=== PATIENT | male | born 2000 | race Caucasian/White ===

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

== ENCOUNTER 2018-03-02 19:14 | Emergency (ER) | payer OTHER ==
[~2018-03-02] VITALS: Ht 434.3 cm; Wt 63.5 kg
[~2018-03-02 19:14] MED LIST changes: +ANAPROX DS550 MG PO; +CEFADROXIL500 M1 PO
[2018-03-04 11:02] LABS: HEPATITIS B SURFACE AG Negative (Negative); HEPATITIS C VIRUS ANTIBODY <0.1 s/co (0.0-0.9)
== END 2018-03-02 21:42 | disposition home or self-care (01) ==
LOC: ED 19:14
PROVIDERS: Student in an Organized Health Care Education/Training Program
DX: Z03.89 Encounter for observation for other suspected diseases and conditions ruled out (principal); Z77.21 Contact with and (suspected) exposure to potentially hazardous body fluids

== ENCOUNTER → 2021-05-25 | Outpatient (CLI) | payer OTHER | END | disposition home or self-care (01) | LOC: COVID19 17:22 | PROVIDERS: ATTEND Student in an Organized Health Care Education/Training Program | DX: U07.1 COVID-19 (principal) ==